=== PATIENT | female | born 1985 | race Caucasian/White ===

== ENCOUNTER 2019-01-12 20:11 | Emergency (ER) | payer OTHER ==
[~2019-01-12] VITALS: Ht 165.1 cm; Wt 54.4 kg
[~2019-01-12 20:11] MED LIST: BIRTH CONTROL; Bactrim Ds Tab1 EACH PO; CEPH500 PO; CRUTCH4 USE; Cleocin HCl150 MG PO; DOXY100T53 PO; HYDACE5 PO; NAPR500 PO; Norco 5-325 Ta1 EACH PO; ONDA4 PO; OXYACE5T PO; SULTRIDS PO; Verotin-Gr Cap1 EACH PO; Zofran Odt4 MG SL
== END 2019-01-12 21:18 | disposition home or self-care (01) ==
LOC: ER 20:11
DX: S93.401A Sprain of unspecified ligament of right ankle, initial encounter (principal); Z72.0 Tobacco use; X50.1XXA Overexertion from prolonged static or awkward postures, initial encounter
CPT/HCPCS: 73610; 99283-25

== ENCOUNTER 2020-05-10 12:05 | Emergency (ER) | payer OTHER ==
[~2020-05-10] VITALS: Ht 165.1 cm; Wt 65.8 kg
[2020-05-10] MEDS ORDERED: IMIP25 PO (12:19)
== END 2020-05-10 13:06 | disposition home or self-care (01) ==
LOC: ER 12:05
DX: S51.011A Laceration without foreign body of right elbow, initial encounter (principal); Z79.899 Other long term (current) drug therapy; Z87.891 Personal history of nicotine dependence; W10.9XXA Fall (on) (from) unspecified stairs and steps, initial encounter; Y92.89 Other specified places as the place of occurrence of the external cause; Y99.0 Civilian activity done for income or pay
CPT/HCPCS: 12001; 99282-25

== ENCOUNTER 2020-05-25 12:00 | Emergency (ER) | payer OTHER ==
[~2020-05-25] VITALS: Ht 165.1 cm; Wt 65.8 kg
[~2020-05-25 12:00] MED LIST changes: +IMIP25 PO
== END 2020-05-25 13:46 | disposition home or self-care (01) ==
LOC: ER 12:00
DX: S51.011D Laceration without foreign body of right elbow, subsequent encounter (principal); Z87.891 Personal history of nicotine dependence; W45.8XXD Other foreign body or object entering through skin, subsequent encounter

== ENCOUNTER → 2020-07-07 | Outpatient (CLI) | payer OTHER ==
[2020-07-08 17:07] LABS: HPV 16 Negative (Negative); HPV 18 Negative (Negative); HPV OTHER HR TYPES Negative (Negative)
== END | disposition home or self-care (01) ==
LOC: LAB SRC 10:00
PROVIDERS: Nurse Practitioner Family
DX: Z12.4 Encounter for screening for malignant neoplasm of cervix (principal)
CPT/HCPCS: 87624; G0123

== ENCOUNTER → 2021-02-24 | Outpatient (CLI) | payer OTHER | END | disposition home or self-care (01) | LOC: LAB SHORT 17:40 → LAB 17:40 | DX: N39.0 Urinary tract infection, site not specified (principal) | CPT/HCPCS: 87077; 87086; 87186 ==

== ENCOUNTER → 2022-06-27 | Outpatient (CLI) | payer OTHER ==
[2022-06-28 10:40] LABS: Candida species (DNA Probe) Negative (NEGATIVE); G. vaginalis (DNA Probe) Negative (NEGATIVE); T. vaginalis (DNA Probe) Positive (NEGATIVE)
[2022-06-29 01:09] LABS: CHLAMYDIA TRACHOMATIS, NAA Negative (Negative)
== END | disposition home or self-care (01) ==
LOC: LAB 12:00 → LAB SHORT 12:00
PROVIDERS: Nurse Practitioner Family
DX: R10.2 Pelvic and perineal pain (principal); N64.52 Nipple discharge; Z72.51 High risk heterosexual behavior
CPT/HCPCS: 87480; 87491; 87510; 87591; 87660